=== PATIENT | male | born 1945 | race Caucasian/White ===

== ENCOUNTER 2016-11-02 07:07 | Day surgery (SDC) | payer MEDICARE, BC ==
[~2016-11-02] VITALS: Ht 177.8 cm; Wt 104.0 kg
[~2016-11-02 07:07] MED LIST: BUPIVACAINE/PF-EPI 0.5% 1:200K ONE; HEPARIN 1,000 UNITS/ML, 10ML ONE; PROTAMINE SULFATE 10 MG/ML, 5ML ONE; THROMBIN 20,000 UNIT VIAL TP ONE
[2016-11-02] MEDS ORDERED: SODIUM CHLORIDE 0.9% 1,000 ML IV SCH (07:55)
[2016-11-02 07:58] VITALS: BP 116/72
[2016-11-02] MEDS ORDERED: LIDOCAINE 1%, 2ML SQ PRN (08:00)
[2016-11-02] MEDS ORDERED: FENTANYL PF 100 MCG/2ML ONE (08:02)
[2016-11-02] MEDS ORDERED: MIDAZOLAM 1 MG/ML, 2ML ONE (08:02)
[2016-11-02] MEDS ORDERED: WARF3TAB PO (08:09)
[2016-11-02] MEDS ORDERED: ASPI-496 PO (08:09)
[2016-11-02] MEDS ORDERED: ALBU18HF INH (08:09)
[2016-11-02] MEDS ORDERED: URSO300C27 PO (08:09)
[2016-11-02] MEDS ORDERED: METO25TA35 PO (08:09)
[2016-11-02] MEDS ORDERED: LIDOCAINE 1%, 2ML ONE ×2 (08:30)
[2016-11-02] MEDS ORDERED: PROPOFOL 10 MG/ML, 20ML ONE (08:40)
[2016-11-02] MEDS ORDERED: CEFAZOLIN 1,000 MG ONE (08:40)
[2016-11-02] MEDS ORDERED: ONDANSETRON 2MG/ML, 2ML ONE (08:40)
[2016-11-02] MEDS ORDERED: DEXAMETHASONE 4 MG/ML, 1ML ONE (08:40)
[2016-11-02] MEDS ORDERED: HEPARIN 1,000 UNITS/ML, 10ML IV ONE (08:53)
[2016-11-02] MEDS ORDERED: FENTANYL PF 100 MCG/2ML IV PRN (09:00)
[2016-11-02] MEDS ORDERED: MEPERIDINE/PF 25MG/0.5ML IVPush PRN (09:00)
[2016-11-02] MEDS ORDERED: hydrALAzine 20 MG/ML, 1ML IV PRN (09:00)
[2016-11-02] MEDS ORDERED: PROMETHAZINE 25 MG/ML, 1ML IV PRN (09:00)
[2016-11-02] MEDS ORDERED: OXYcodone 5 MG/5 ML ORAL.SOL UDC PO PRN (09:00)
[2016-11-02] MEDS ORDERED: ACETAMINOPHEN 325 MG TABLET PO PRN (09:00)
[2016-11-02] MEDS ORDERED: HYDROmorphone 1 MG/ML, 1ML IV PRN (09:00)
[2016-11-02] MEDS ORDERED: LABETALOL 5MG/ML, 20ML IV PRN (09:00)
[2016-11-02] MEDS ORDERED: ONDANSETRON 2MG/ML, 2ML IVPush PRN (09:00)
[2016-11-02] MEDS ORDERED: HYDROcodone/APAP 5/325 TABLET ONE (11:16)
[2016-11-02] MEDS ORDERED: HYDROcodone/APAP 5/325 TABLET PO ONE (11:30)
== END 2016-11-02 12:10 | disposition home or self-care (01) ==
LOC: OUT 07:07
PROVIDERS: ATTEND Surgery Vascular Surgery
DX: I13.2 Hypertensive heart and chronic kidney disease with heart failure and with stage 5 chronic kidney disease, or end stage renal disease (principal); N18.6 End stage renal disease; I50.9 Heart failure, unspecified; Z99.2 Dependence on renal dialysis; J45.909 Unspecified asthma, uncomplicated; J44.9 Chronic obstructive pulmonary disease, unspecified; I44.7 Left bundle-branch block, unspecified
CPT/HCPCS: 36415; 36821; 80047; 85610; 85730; 93005; J0690; J1100; J1644; J2250; J2405; J2704; J3010; J3490; J2720

== ENCOUNTER 2016-12-24 10:33 | Day surgery (SDC) | payer MEDICARE, BC ==
[~2016-12-24] VITALS: Ht 177.8 cm; Wt 106.0 kg
[~2016-12-24 10:33] MED LIST changes: +ALBU18HF INH; +ASPI-496 PO; -BUPIVACAINE/PF-EPI 0.5% 1:200K ONE; +FENTANYL PF 250 MCG/5ML ONE; -HEPARIN 1,000 UNITS/ML, 10ML ONE; +METO25TA35 PO; +MIDAZOLAM 1 MG/ML, 2ML ONE; -PROTAMINE SULFATE 10 MG/ML, 5ML ONE; -THROMBIN 20,000 UNIT VIAL TP ONE; +URSO300C27 PO; +WARF3TAB PO
[2016-12-24] MEDS ORDERED: SODIUM CHLORIDE 0.9% 1,000 ML IV SCH (11:00)
[2016-12-24] MEDS ORDERED: WARF5TAB7 PO (11:19)
[2016-12-24] MEDS ORDERED: ENOX40SY4 SQ (11:19)
[2016-12-24] MEDS ORDERED: PLEASE ENTER HEIGHT AND WEIGHT MC SCH (11:30)
[2016-12-24 11:54] VITALS: BP 91/62
[2016-12-24] MEDS ORDERED: BUPIVACAINE/PF-EPI 0.5% 1:200K ONE (12:15)
[2016-12-24] MEDS ORDERED: HEPARIN 1,000 UNITS/ML, 10ML ONE ×2 (12:59→15:29)
[2016-12-24] MEDS ORDERED: LABETALOL 5MG/ML, 20ML IV PRN (13:00)
[2016-12-24] MEDS ORDERED: MEPERIDINE/PF 25MG/0.5ML IVPush PRN (13:00)
[2016-12-24] MEDS ORDERED: HYDROmorphone 1 MG/ML, 1ML IV PRN (13:00)
[2016-12-24] MEDS ORDERED: OXYcodone 5 MG/5 ML ORAL.SOL UDC PO PRN (13:00)
[2016-12-24] MEDS ORDERED: ONDANSETRON 2MG/ML, 2ML IVPush PRN (13:00)
[2016-12-24] MEDS ORDERED: ALBUTEROL SULFATE 2.5 MG/3 ML NPPB PRN (13:00)
[2016-12-24] MEDS ORDERED: PROMETHAZINE 25 MG/ML, 1ML IV PRN (13:00)
[2016-12-24] MEDS ORDERED: hydrALAzine 20 MG/ML, 1ML IV PRN (13:00)
[2016-12-24] MEDS ORDERED: HEPARIN 1,000 UNITS/ML, 10ML IV ONE (13:10)
[2016-12-24] MEDS ORDERED: BUPIVACAINE/PF-EPI 0.5% 1:200K INFIL ONE (13:11)
[2016-12-24] MEDS ORDERED: ONDANSETRON 2MG/ML, 2ML ONE (14:32)
[2016-12-24] MEDS ORDERED: OXYcodone 5 MG/5 ML ORAL.SOL UDC ONE (14:36)
[2016-12-24] MEDS ORDERED: FENTANYL PF 100 MCG/2ML ONE (15:01)
[2016-12-24] MEDS: FENTANYL PF 100 MCG/2ML IV PRN ×2 (15:02→15:12)
[2016-12-24] MEDS ORDERED: GLYCOPYRROLATE 0.2MG/1ML ONE (16:08)
[2016-12-24] MEDS ORDERED: CEFAZOLIN 1,000 MG ONE (16:08)
[2016-12-24] MEDS ORDERED: ROCURONIUM 10 MG/ML ONE (16:08)
[2016-12-24] MEDS ORDERED: NEOSTIGMINE 1 MG/ML, 10ML ONE (16:08)
[2016-12-24] MEDS ORDERED: PROPOFOL 10 MG/ML, 20ML ONE (16:08)
== END 2016-12-24 16:30 | disposition home or self-care (01) ==
LOC: OUT 10:33
PROVIDERS: ATTEND Surgery
DX: T82.510A Breakdown (mechanical) of surgically created arteriovenous fistula, initial encounter (principal); I12.0 Hypertensive chronic kidney disease with stage 5 chronic kidney disease or end stage renal disease; N18.6 End stage renal disease; I48.91 Unspecified atrial fibrillation; I49.5 Sick sinus syndrome; I25.10 Atherosclerotic heart disease of native coronary artery without angina pectoris; Z95.1 Presence of aortocoronary bypass graft; Z95.4 Presence of other heart-valve replacement; Z95.0 Presence of cardiac pacemaker; Y83.2 Surgical operation with anastomosis, bypass or graft as the cause of abnormal reaction of the patient, or of later complication, without mention of misadventure at the time of the procedure; Z79.01 Long term (current) use of anticoagulants
CPT/HCPCS: 36415; 36832; 49324; 80047; 85610; C1751; J0690; J1644; J2250; J2704; J2710; J3010; J3490

== ENCOUNTER 2016-12-27 10:49 | Inpatient (IN) | payer MEDICARE, BC ==
[~2016-12-27] VITALS: Ht 177.8 cm; Wt 111.6 kg
[~2016-12-27 10:49] MED LIST changes: +ENOX40SY4 SQ; -FENTANYL PF 250 MCG/5ML ONE; -MIDAZOLAM 1 MG/ML, 2ML ONE; +WARF5TAB7 PO
[2016-12-27] MEDS ORDERED: SODIUM CHLORIDE 0.9% 1,000ML IVBOLUS ONE (12:00)
[2016-12-27] MEDS ORDERED: VANCOMYCIN PER PHARMACY IV ONE (12:00)
[2016-12-27] MEDS ORDERED: PIPERACILLIN/TAZO 3.375 GM in SODIUM CHLORIDE 0.9% 50 ML IVPB ONE (12:30)
[2016-12-27] MEDS ORDERED: VANCOMYCIN 2,000 MG in SODIUM CHLORIDE 0.9% 500 ML IV ONE (13:00)
[2016-12-27] MEDS ORDERED: OMNIPAQUE 350 MG/ML, 100ML BOTTLE ONE (13:54)
[2016-12-27] MEDS ORDERED: PIPERACILLIN/TAZO/PMX 3.375GM 50 ML ONE (13:57)
[2016-12-27] MEDS ORDERED: BISACODYL 10 MG SUPP PR PRN (15:30)
[2016-12-27] MEDS ORDERED: DOCUSATE 100 MG CAPSULE PO PRN (15:30)
[2016-12-27] MEDS ORDERED: VANCOMYCIN PER PHARMACY MC PRN (16:30)
[2016-12-27] MEDS ORDERED: PHARMACOKINETIC CONSULTATION MC ONE (18:00)
[2016-12-27] MEDS ORDERED: PHARMACOKINETIC MONITORING MC PRN (18:00)
[2016-12-27 18:22] VITALS: BP 126/71
[2016-12-27] MEDS ORDERED: ALBUTEROL SULFATE 2.5 MG/3 ML NPPB PRN (19:00)
[2016-12-27] MEDS ORDERED: WARFARIN 2 MG TABLET PO-COUM ONE (20:30)
[2016-12-27 20:33] VITALS: BP 122/67
[2016-12-27] MEDS: PIPERACILLIN/TAZO 3.375 GM in SODIUM CHLORIDE 0.9% 50 ML IV SCH (21:23)
[2016-12-28 01:19] VITALS: BP 124/61
[2016-12-28] MEDS: PIPERACILLIN/TAZO 3.375 GM in SODIUM CHLORIDE 0.9% 50 ML IV SCH (05:36)
[2016-12-28 05:56] LABS: ASPARTATE AMINO TRANSFERASE 18 U/L (15-37); BLOOD UREA NITROGEN 76 mg/dL (7-18)
[2016-12-28] MEDS ORDERED: HYDROcodone/APAP 5/325 TABLET PO PRN (08:00)
[2016-12-28 08:10] VITALS: BP 103/69
[2016-12-28 13:31] VITALS: BP 112/69
[2016-12-28] MEDS: METOPROLOL TARTRATE 25 MG TABLET PO SCH (13:43)
[2016-12-28] MEDS: ASPIRIN 81 MG TABLET EC PO SCH (13:43)
[2016-12-28] MEDS: PIPERACILLIN/TAZO 2.25 GM in NS 50 ML IV SCH ×2 (13:50→21:28)
[2016-12-28] MEDS ORDERED: NALOXONE 0.4 MG/ML, 1ML IVPush ONE (14:30)
[2016-12-28] MEDS ORDERED: ACETAMINOPHEN 325 MG TABLET PO PRN (15:00)
[2016-12-28] MEDS: KETOROLAC 30 MG/1 ML IVPush SCH ×2 (16:27→21:00)
[2016-12-28] MEDS ORDERED: WARFARIN 5 MG TABLET PO-COUM ONE (18:00)
[2016-12-28] MEDS: LACTULOSE 20 GM/30 ML UDC PO SCH ×2 (18:15→21:28)
[2016-12-28 20:58] VITALS: BP 74/43
[2016-12-28 22:00] VITALS: BP 83/53
[2016-12-28] MEDS ORDERED: SODIUM CHLORIDE 0.9%, 250ML IVBOLUS ONE (22:30)
[2016-12-28 23:27] VITALS: BP 93/59
[2016-12-29] VITALS (7 sets, daily range): BP systolic 75–110; BP diastolic 40–73
[2016-12-29] MEDS: KETOROLAC 30 MG/1 ML IVPush SCH ×4 (02:13→21:00)
[2016-12-29 05:37] LABS: BLOOD UREA NITROGEN 57 mg/dL (7-18)
[2016-12-29 05:41] LABS: ASPARTATE AMINO TRANSFERASE 15 U/L (15-37)
[2016-12-29] MEDS: PIPERACILLIN/TAZO 2.25 GM in NS 50 ML IV SCH ×2 (05:50→14:11)
[2016-12-29] MEDS: LACTULOSE 20 GM/30 ML UDC PO SCH ×3 (09:30→21:45)
[2016-12-29] MEDS: ASPIRIN 81 MG TABLET EC PO SCH (09:30)
[2016-12-29] MEDS: METOPROLOL TARTRATE 25 MG TABLET PO SCH (09:30)
[2016-12-29 09:44] LABS: HEP B SURF. AB < 3.1 mIU/mL (0.0-10.0)
[2016-12-29] MEDS ORDERED: TEMPLATE NON-FORMULARY MED. (Albuterol Sulfate (Ventolin Hfa) 0 PUFF(S)) INH PRN (10:00)
[2016-12-29] MEDS ORDERED: SODIUM CHLORIDE 0.9%, 500ML IVBOLUS ONE (12:30)
[2016-12-29] MEDS ORDERED: ONDANSETRON 2MG/ML, 2ML IVPush PRN (16:30)
[2016-12-29] MEDS ORDERED: WARFARIN 5 MG TABLET PO-COUM ONE (18:00)
[2016-12-29] MEDS ORDERED: VANCOMYCIN 2,000 MG in SODIUM CHLORIDE 0.9% 500 ML IV ONE (21:00)
[2016-12-29 21:04] LABS: CELLS COUNTED 43; DILUTION 1; WBC SQUARES COUNTED 10
[2016-12-30 01:12] VITALS: BP 90/53
[2016-12-30] MEDS: KETOROLAC 30 MG/1 ML IVPush SCH ×4 (03:47→20:21)
[2016-12-30] MEDS: PIPERACILLIN/TAZO 2.25 GM in NS 50 ML IV SCH ×2 (05:15→14:24)
[2016-12-30 05:42] LABS: BLOOD UREA NITROGEN 76 mg/dL (7-18)
[2016-12-30 05:46] LABS: ASPARTATE AMINO TRANSFERASE 24 U/L (15-37)
[2016-12-30 06:03] LABS: DIFF TOTAL CELLS COUNTED 100 CELL DIFF
[2016-12-30 06:05] LABS: VERIFY COUNTS? YES
[2016-12-30 06:06] LABS: ANISOCYTOSIS 1+; POLYCHROMASIA 1+
[2016-12-30] MEDS: RIFAXIMIN 550 MG TABLET PO SCH ×2 (06:32→08:38)
[2016-12-30 07:27] VITALS: BP 85/39
[2016-12-30] MEDS: ASPIRIN 81 MG TABLET EC PO SCH (08:38)
[2016-12-30] MEDS: LACTULOSE 20 GM/30 ML UDC PO SCH ×3 (08:38→20:21)
[2016-12-30] MEDS: METOPROLOL TARTRATE 25 MG TABLET PO SCH (08:38)
[2016-12-30] MEDS: MIDODRINE 5 MG TABLET PO SCH ×2 (08:38→20:22)
[2016-12-30] MEDS ORDERED: SODIUM CHLORIDE 0.9%, 500ML IVBOLUS ONE ×2 (09:00→19:30)
[2016-12-30] MEDS ORDERED: SODIUM CHLORIDE 0.9% 1,000 ML IV SCH (10:00)
[2016-12-30 13:39] VITALS: BP 87/55
[2016-12-30] MEDS ORDERED: WARFARIN 2.5 MG TABLET PO-COUM ONE (18:00)
[2016-12-30 19:27] VITALS: BP_SYST 80; BP_SYST 89; BP_DIAS 39; BP_DIAS 40
[2016-12-31 01:52] VITALS: BP 85/40
[2016-12-31] MEDS: KETOROLAC 30 MG/1 ML IVPush SCH ×2 (04:04→12:39)
[2016-12-31 05:15] LABS: OCCBLD LOT 2-15-23038031; OCCBLD OBC PASS
[2016-12-31] MEDS: PIPERACILLIN/TAZO/PMX 2.25GM 50 ML IV SCH ×2 (05:49→14:00)
[2016-12-31 06:02] LABS: BLOOD UREA NITROGEN 51 mg/dL (7-18)
[2016-12-31 06:08] LABS: ASPARTATE AMINO TRANSFERASE 18 U/L (15-37)
[2016-12-31 06:32] VITALS: BP 105/53
[2016-12-31] MEDS: ASPIRIN 81 MG TABLET EC PO SCH (09:18)
[2016-12-31] MEDS: RIFAXIMIN 550 MG TABLET PO SCH (09:18)
[2016-12-31] MEDS: LACTULOSE 20 GM/30 ML UDC PO SCH ×3 (09:19→21:00)
[2016-12-31] MEDS: MIDODRINE 5 MG TABLET PO SCH ×2 (09:19→21:01)
[2016-12-31] MEDS ORDERED: ERGOCALCIFEROL 50,000 UNIT CAPSULE PO SCH (11:00)
[2016-12-31 12:47] LABS: HEPATITIS C VIRUS ANTIBODY Nonreactive (Nonreactive)
[2016-12-31 12:48] LABS: HEPATITIS A ANTIBODY TOTAL Nonreactive (Nonreactive)
[2016-12-31 13:33] VITALS: BP 101/56
[2016-12-31] MEDS ORDERED: HYDROcodone/APAP 5/325 TABLET PO PRN (15:00)
[2016-12-31] MEDS: CALCITRIOL 0.25 MCG CAPSULE PO SCH (16:00)
[2016-12-31 19:51] VITALS: BP 105/46
[2016-12-31] MEDS: AMOXICILLIN/CLAV 875-125MG TABLET PO SCH (21:00)
[2017-01-01 00:56] VITALS: BP 111/58
[2017-01-01 05:54] LABS: ASPARTATE AMINO TRANSFERASE 20 U/L (15-37); BLOOD UREA NITROGEN 47 mg/dL (7-18); TOTAL IRON BINDING CAPACITY 225 mcg/dL (250-450)
[2017-01-01 08:00] VITALS: BP 108/65
[2017-01-01] MEDS: CALCITRIOL 0.25 MCG CAPSULE PO SCH (09:33)
[2017-01-01] MEDS: ASPIRIN 81 MG TABLET EC PO SCH (09:33)
[2017-01-01] MEDS: MIDODRINE 5 MG TABLET PO SCH (09:34)
[2017-01-01] MEDS: AMOXICILLIN/CLAV 875-125MG TABLET PO SCH (09:34)
[2017-01-01] MEDS ORDERED: AMOX1TAB12 PO (11:00)
[2017-01-01] MEDS ORDERED: CALC0.25 PO (11:00)
[2017-01-01] MEDS ORDERED: MIDO5TAB PO (11:00)
[2017-01-01] MEDS ORDERED: ERGO500017 PO (11:00)
[2017-01-01 14:00] VITALS: BP 139/81
[2017-01-01] MEDS ORDERED: WARFARIN 1 MG TABLET PO-COUM SCH (18:00)
== END 2017-01-01 17:08 | disposition home or self-care (01) | DRG 871 ==
LOC: ED 12:16 → EDIP 15:23 → 4WST 17:36
PROVIDERS: ATTEND Family Medicine
PROC: 4B02XSZ Measurement of Cardiac Pacemaker, External Approach (ICD-10-PCS; principal; 2016-12-27)
PROC: 5A1D60Z (ICD-10-PCS; 2016-12-28)
DX: A41.9 Sepsis, unspecified organism (principal); J96.21 Acute and chronic respiratory failure with hypoxia; N18.6 End stage renal disease; J18.9 Pneumonia, unspecified organism; N39.0 Urinary tract infection, site not specified; I13.2 Hypertensive heart and chronic kidney disease with heart failure and with stage 5 chronic kidney disease, or end stage renal disease; D68.69 Other thrombophilia; K80.51 Calculus of bile duct without cholangitis or cholecystitis with obstruction; E66.9 Obesity, unspecified; D63.1 Anemia in chronic kidney disease; D69.6 Thrombocytopenia, unspecified; G47.30 Sleep apnea, unspecified; I25.5 Ischemic cardiomyopathy; I48.91 Unspecified atrial fibrillation; I50.9 Heart failure, unspecified; I95.3 Hypotension of hemodialysis; J84.10 Pulmonary fibrosis, unspecified; K72.90 Hepatic failure, unspecified without coma; N25.0 Renal osteodystrophy; Z79.01 Long term (current) use of anticoagulants; Z95.0 Presence of cardiac pacemaker; Z95.2 Presence of prosthetic heart valve; Z99.2 Dependence on renal dialysis
CPT/HCPCS: 36415; 70450; 71010; 74177; 80047; 80053; 80202; 81001; 82042; 82140; 82272; 82306; 82607; 82728; 83540; 83550; 83615; 83735; 83880; 83970; 84100; 84145; 84443; 84550; 85025; 85610; 86704; 86706; 86708; 86803; 87040; 87070; 87086; 87205; 87340; 87521; 89051; 93005; 96365; 96366; J1885; J2310; J2405; J2543; J3370; Q9967; J7030; J7040; J7050